=== PATIENT | male | born 1980 | race Caucasian/White ===

== ENCOUNTER 2018-07-01 08:04 | Emergency (ER) | payer SELFPAY ==
[2018-07-01] MEDS ORDERED: FERR325T24 PO (08:16)
[2018-07-01] MEDS ORDERED: FOLI-68 PO (08:16)
[2018-07-01] MEDS ORDERED: INF100I IV (08:16)
[2018-07-01] MEDS ORDERED: MERC50TA14 PO (08:16)
[2018-07-01] MEDS ORDERED: PRED20TA6 PO (08:16)
[2018-07-01] MEDS ORDERED: NS(*) 0.9% 1000 ML BAG 1,000 ML IV ONE (08:31)
[2018-07-01] MEDS ORDERED: HYDROMORPHONE HCL 1 MG/ML SYRINGE IVP ONE ×3 (08:35→11:40)
[2018-07-01] MEDS ORDERED: MESALAMINE 400 MG TABEC PO SCH (08:35)
[2018-07-01] MEDS ORDERED: methylPREDNIS SUCC 125 MG/2ML IVP ONE (08:35)
[2018-07-01] MEDS ORDERED: ONDANSETRON 4 MG/2 ML VIAL IVP ONE (08:35)
[2018-07-01 08:42] LABS: PLATELET COUNT, AUTOMATED 561 K/uL (150-450)
--- NOTE | 2018-07-01 08:42 | ER Report ---
History and Physical Time Seen By MD: 08:20 Hx. of Stated Complaint: PT REPORTS ULCERATIVE COLITIS FLARE UP. REPORTS ABD PAIN AND DARK BLOODY STOOLS. HPI/ROS CHIEF COMPLAINT: Abdominal pain HISTORY OF PRESENT ILLNESS: Patient is a 38-year-old male who presents to the emergency Department with concerns of ulcerative colitis flare. Patient carries this diagnosis and is on chronic daily steroids, 40 mg prednisone daily he also takes mesalamine and receives IV Remicade infusions. Patient was camping and developed crampy abdominal pain and bloody diarrhea overnight. We were the nearest emergency department to him so he presents here this morning for evaluation. [place] [facility] [place]. Patient denies any fevers but reports severe crampy abdominal pain, sweats chills. Denies any chest pain or shortness of breath. Patient has not had any prior surgeries for ulcerative colitis to this date. REVIEW OF SYSTEMS: Constitutional: No fever, chills Eyes: No discharge. ENT: No sore throat. Cardiovascular: No chest pain, no palpitations. Respiratory: No cough, no shortness of breath. Gastrointestinal: Crampy abdominal pain, nausea bloody diarrhea Genitourinary: No hematuria. Musculoskeletal: No back pain. Skin: No rashes. Neurological: No headache. Allergies: Coded Allergies: Penicillins (Verified Allergy, Intermediate, RASH, 07/01/18) morphine (Verified Adverse Reaction, Severe, 07/01/18) VIOLENT BEHAVIOR Home Meds Active Scripts Oxycodone Hcl (OXYCODONE HCL) 5 Mg Tablet, 5 MG PO Q4H for PAIN, #20 TAB 0 Refills Prov:LANG JEFFERS MD 07/01/18 Metronidazole (FLAGYL) 500 Mg Tablet, 500 MG PO BID, #20 TAB 0 Refills Prov:LANG JEFFERS MD 07/01/18 Ciprofloxacin Hcl (CIPRO) 500 Mg Tablet, 500 MG PO BID, #20 TAB 0 Refills Prov:LANG JEFFERS MD 07/01/18 Reported Medications Ferrous Sulfate (IRON) 325 Mg Tablet, 325 MG PO DAILY 07/01/18 Folic Acid (FOLIC ACID) 1 Mg Tablet, PO QDAY, TAB 07/01/18 Mercaptopurine (MERCAPTOPURINE) 50 Mg Tablet, 100 MG PO DAILY 07/01/18 Infliximab (REMICADE) 100 Mg Soln, IV [id number] 07/01/18 Prednisone (PREDNISONE) 20 Mg Tablet, 40 MG PO QDAY, TAB 07/01/18 Discontinued Scripts Oxycodone Hcl/Acetaminophen (PERCOCET 5-325 MG TABLET) 1 Each Tablet, 1 EACH PO Q4H for PAIN, #20 TAB 0 Refills Prov:LANG JEFFERS MD 07/01/18 Past Medical/Surgical History History of ulcerative colitis Constitutional Vital Sign - Last 24 Hours 07/01/18 07/01/18 07/01/18 07/01/18 08:10 08:15 08:30 08:45 Temp 98.2 Pulse 110 114 115 115 Resp 16 B/P (MAP) 139/94 129/88 (102) Pulse Ox 98 96 99 96 O2 Delivery Room Air 07/01/18 07/01/18 07/01/18 07/01/18 09:00 09:30 09:45 10:00 Pulse 112 110 107 101 B/P (MAP) 130/87 (101) 126/86 (99) 124/80 (95) Pulse Ox 97 100 99 98 07/01/18 07/01/18 07/01/18 07/01/18 10:15 10:30 10:45 11:03 Pulse 101 102 112 B/P (MAP) 120/81 (94) 119/75 (90) Pulse Ox 98 98 98 07/01/18 07/01/18 07/01/18 07/01/18 11:15 11:30 11:45 11:46 Pulse 115 108 106 B/P (MAP) 112/70 (84) 122/77 (92) Pulse Ox 98 96 96 07/01/18 12:10 Pulse 116 Pulse Ox 90 O2 Delivery Room Air Intake and Output 07/01/18 07/01/18 07/02/18 15:00 23:00 07:00 Intake Total 1250 ml Balance 1250 ml Physical Exam General/Constitutional: Patient is awake, alert, nontoxic and in no acute respiratory distress. Head: Normocephalic and atraumatic. Eyes: Conjunctival clear, Pupils are equal and reactive to light. Extraocular muscles are intact and symmetrical. Sclera are clear and anicteric. Ears:External canals are clear. Tympanic membranes are clear with normal landmarks and light reflex. Nares: No rhinorrhea or bleeding. Turbinates are pink and moist. Oropharyngeal: Mucous membranes are moist. There is no pharyngeal erythema or exudate. There are no palatal petechiae. Uvula is midline and symmetrical. Neck: Supple, no adenopathy. Cardiovascular: Heart is regular rate and rhythm without audible murmurs, rubs or gallops. Pulmonary: Lungs are clear to auscultation bilaterally. There are no wheezes, rales, or rhonchi. Chest rise is symmetrical Abdomen: Diffuse abdominal pain, increased bowel sounds no peritoneal signs Extremities: No gross deformities, No peripheral cyanosis. Able to move all 4 extremities. Neuro: Alert and oriented X3, Skin: No rashes, skin is warm dry and well perfused. Medical Decision Making Data Points Result Diagram: 07/01/18 0820 07/01/18 0820 Laboratory Hematology Test 07/01/18 08:20 07/01/18 08:44 07/01/18 11:04 Red Blood Count 3.60 M/uL (4.00-5.60) Mean Corpuscular Volume 87.7 fL (80.0-96.0) Mean Corpuscular Hemoglobin 28.0 pg (26.0-33.0) Mean Corpuscular Hemoglobin Concent 31.9 g/dL (32.0-36.0) Red Cell Distribution Width 17.4 % (11.5-14.5) Mean Platelet Volume 6.6 fL (7.2-11.1) Neutrophils (%) (Auto) 65.0 % (39.4-72.5) Lymphocytes (%) (Auto) 23.1 % (17.6-49.6) Monocytes (%) (Auto) 10.0 % (4.1-12.4) Eosinophils (%) (Auto) 1.4 % (0.4-6.7) Basophils (%) (Auto) 0.5 % (0.3-1.4) Nucleated RBC Relative Count (auto) 0.0 /100WBC Neutrophils # (Auto) 4.6 K/uL (2.0-7.4) Lymphocytes # (Auto) 1.6 K/uL (1.3-3.6) Monocytes # (Auto) 0.7 K/uL (0.3-1.0) Eosinophils # (Auto) 0.1 K/uL (0.0-0.5) Basophils # (Auto) 0.0 K/uL (0.0-0.1) Nucleated RBC Absolute Count (auto) 0.00 K/uL Erythrocyte Sedimentation Rate 69 mm/HOUR (0-15) Sodium Level 139 mmol/L (137-145) Potassium Level 3.8 mmol/L (3.5-5.0) Chloride Level 99 mmol/L (98-107) Carbon Dioxide Level 28 mmol/L (22-30) Blood Urea Nitrogen 7 mg/dl (9-21) Creatinine 0.80 mg/dl (0.66-1.25) Glomerular Filtration Rate Calc > 60.0 Random Glucose 120 mg/dl (75-110) Calcium Level 8.9 mg/dl (8.4-10.2) Total Bilirubin 0.3 mg/dl (0.2-1.3) Aspartate Amino Transf (AST/SGOT) 28 U/L (0-35) Alanine Aminotransferase (ALT/SGPT) 34 U/L (0-56) Alkaline Phosphatase 101 U/L (0-126) Total Protein 6.8 g/dl (6.3-8.2) Albumin 3.5 g/dl (3.5-5.0) Lipase 33 U/L (23-300) Stool Occult Blood (IFOB) Positive (NEGATIVE) Stool Leukocytes, Qualitative Positive Clostridium Difficile Toxin A & B Negative Clostridium difficile Antigen Positive Urine Color Yellow Urine Clarity Clear Urine pH 6.0 pH (4.8-9.5) Urine Specific [place] S3 Urine Protein Negative mg/dL (NEGATIVE) Urine Glucose (UA) Negative mg/dL (NEGATIVE) Urine Ketones Negative mg/dL (NEGATIVE) Urine Blood Negative (NEGATIVE) Urine Nitrite Negative (NEGATIVE) Urine Bilirubin Negative (NEGATIVE) Urine Urobilinogen Negative mg/dL (0.2-1.9) Urine Leukocyte Esterase Negative (NEGATIVE) Urine RBC None /HPF (0-2/HPF) Urine WBC None /HPF (0-5/HPF) Urine Squamous Epithelial Cells None /LPF (</=FEW) Urine Bacteria Negative /HPF (NONE-FEW) Urine Mucus Few /HPF (NONE-FEW) Chemistry Test 07/01/18 08:20 07/01/18 08:44 07/01/18 11:04 White Blood Count 7.1 k/uL (4.5-11.0) Red Blood Count 3.60 M/uL (4.00-5.60) Hemoglobin 10.1 g/dL (14.0-18.0) Hematocrit 31.6 % (42.0-52.0) Mean Corpuscular Volume 87.7 fL (80.0-96.0) Mean Corpuscular Hemoglobin 28.0 pg (26.0-33.0) Mean Corpuscular Hemoglobin Concent 31.9 g/dL (32.0-36.0) Red Cell Distribution Width 17.4 % (11.5-14.5) Platelet Count 561 K/uL (150-450) Mean Platelet Volume 6.6 fL (7.2-11.1) Neutrophils (%) (Auto) 65.0 % (39.4-72.5) Lymphocytes (%) (Auto) 23.1 % (17.6-49.6) Monocytes (%) (Auto) 10.0 % (4.1-12.4) Eosinophils (%) (Auto) 1.4 % (0.4-6.7) Basophils (%) (Auto) 0.5 % (0.3-1.4) Nucleated RBC Relative Count (auto) 0.0 /100WBC Neutrophils # (Auto) 4.6 K/uL (2.0-7.4) Lymphocytes # (Auto) 1.6 K/uL (1.3-3.6) Monocytes # (Auto) 0.7 K/uL (0.3-1.0) Eosinophils # (Auto) 0.1 K/uL (0.0-0.5) Basophils # (Auto) 0.0 K/uL (0.0-0.1) Nucleated RBC Absolute Count (auto) 0.00 K/uL Erythrocyte Sedimentation Rate 69 mm/HOUR (0-15) Glomerular Filtration Rate Calc > 60.0 Calcium Level 8.9 mg/dl (8.4-10.2) Total Bilirubin 0.3 mg/dl (0.2-1.3) Aspartate Amino Transf (AST/SGOT) 28 U/L (0-35) Alanine Aminotransferase (ALT/SGPT) 34 U/L (0-56) Alkaline Phosphatase 101 U/L (0-126) Total Protein 6.8 g/dl (6.3-8.2) Albumin 3.5 g/dl (3.5-5.0) Lipase 33 U/L (23-300) Stool Occult Blood (IFOB) Positive (NEGATIVE) Stool Leukocytes, Qualitative Positive Clostridium Difficile Toxin A & B Negative Clostridium difficile Antigen Positive Urine Color Yellow Urine Clarity Clear Urine pH 6.0 pH (4.8-9.5) Urine Specific [place] S3 Urine Protein Negative mg/dL (NEGATIVE) Urine Glucose (UA) Negative mg/dL (NEGATIVE) Urine Ketones Negative mg/dL (NEGATIVE) Urine Blood Negative (NEGATIVE) Urine Nitrite Negative (NEGATIVE) Urine Bilirubin Negative (NEGATIVE) Urine Urobilinogen Negative mg/dL (0.2-1.9) Urine Leukocyte Esterase Negative (NEGATIVE) Urine RBC None /HPF (0-2/HPF) Urine WBC None /HPF (0-5/HPF) Urine Squamous Epithelial Cells None /LPF (</=FEW) Urine Bacteria Negative /HPF (NONE-FEW) Urine Mucus Few /HPF (NONE-FEW) Urinalysis Test 07/01/18 11:04 Urine Color Yellow Urine Clarity Clear Urine pH 6.0 pH (4.8-9.5) Urine Specific [place] S3 Urine Protein Negative mg/dL (NEGATIVE) Urine Glucose (UA) Negative mg/dL (NEGATIVE) Urine Ketones Negative mg/dL (NEGATIVE) Urine Blood Negative (NEGATIVE) Urine Nitrite Negative (NEGATIVE) Urine Bilirubin Negative (NEGATIVE) Urine Urobilinogen Negative mg/dL (0.2-1.9) Urine Leukocyte Esterase Negative (NEGATIVE) Urine RBC None /HPF (0-2/HPF) Urine WBC None /HPF (0-5/HPF) Urine Squamous Epithelial Cells None /LPF (</=FEW) Urine Bacteria Negative /HPF (NONE-FEW) Urine Mucus Few /HPF (NONE-FEW) Microbiology Microbiology Date/Time Source Procedure Growth Status 07/01/18 08:44 Stool Gram Stain - Final Resulted 07/01/18 08:44 Stool Stool Culture Pending Resulted EKG/Imaging EKG Interpretation 07/01/2018 12:21:08 pm EKG shows sinus bradycardia with a ventricular rate of 56 bpm is otherwise normal Monitor Interpretation: Normal Sinus Rhythm Imaging FACILITY: [facility] PATIENT NAME: Neville Buckner : 1980 MR: [id number] V: [id number] EXAM DATE: ORDERING PHYSICIAN: LANG JEFFERS TECHNOLOGIST: Location: [facility] Patient: Neville Buckner : 1980 Visit/Account:[id number] Date of Sevice: 07/01/2018 ABDOMEN/PELVIS WITH CONTRAST HISTORY:ulcerative colitis TECHNIQUE: CT abdomen and pelvis with intravenous contrast. Contiguous axial images of the abdomen and pelvis was performed from the lung bases to the symphysis pubis. One of the following dose optimization techniques was utilized in the performance of this exam: Automated exposure control; adjustment of the mA and/or kV according to the patient's size; or use of an iterative reconstruction technique. Specific details can be referenced in the facility's radiology CT exam operational policy. CONTRAST: 85 cc of Isovue-370 COMPARISON: None. FINDINGS: Visualized lung bases: Negative. Hepatobiliary: There is fatty infiltration of liver. Liver measures 19.6 cm in craniocaudal length which is slightly enlarged. Gallbladder and bile ducts are unremarkable. Spleen: Negative. Adrenals: Negative. Kidneys/: Negative. Pancreas: Negative. GI: There is circumferential thickening and mild inflammation of the entire colon in keeping with diagnosis of ulcerative colitis. There is sparing of the small bowel and terminal ileum. Appendix is mildly dilated measures 7 mm without inflammatory changes likely related to patient's underlying ulcerative colitis. No bowel perforation, abscess or obstruction. Vessels/spaces/nodes: Slightly prominent retroperitoneal and mesenteric lymph nodes are likely reactive. Bones/soft tissues: Degenerative changes are noted in the spine. Circumscribed lucent and centrally sclerotic lesion left iliac bone is likely benign in this age group. Benign sclerotic bone island left sepsis pubis is noted. IMPRESSION: 1. Significant thickening and mild inflammation of the entire colon in keeping with diagnosis of ulcerative colitis. No evidence for bowel perforation, abscess formation or obstruction. The small bowel and terminal ileum are spared. Report Dictated By: Aldair Campos MD at 07/01/2018 9:31 AM Report E-Signed By: Aldair Campos MD at 07/01/2018 9:38 AM WSN:[id number] ED Course/Re-evaluation Clinical Indication for ER IV: Hydration, IV Access ED Course Plan at this time will be to give bolus of IV steroids along with oral mesalanine; we will perform CBC give IV fluid bolus and check a CT scan of the abdomen and pelvis. 07/01/2018 10:13:[address] scan reveals diffuse inflammatory bowel changes without evidence of perforation or abscess. C. difficile toxins and B- antigen positive which is an indeterminate result. Plan at this time will be to place the patient on both Cipro and Flagyl as an outpatient. We will have him continue his current ulcerative colitis regime. We will have him follow-up with his GI specialist in [place] on Tuesday. Decision to Disposition Date: Jul 01, 2018 Decision to Disposition Time: 11:49 Depart Departure Latest Vital Signs Vital Signs Date Time Temp Pulse Resp B/P (MAP) Pulse Ox O2 Delivery O2 Flow Rate FiO2 07/01/18 12:10 116 90 Room Air 07/01/18 11:46 122/77 (92) 07/01/18 08:10 98.2 16 Impression: Primary Impression: Ulcerative colitis Condition: Improved Disposition: HOME OR SELF-CARE New Scripts Oxycodone Hcl (OXYCODONE HCL) 5 Mg Tablet 5 MG PO Q4H for PAIN, #20 TAB 0 Refills Prov: LANG JEFFERS MD 07/01/18 Metronidazole (FLAGYL) 500 Mg Tablet 500 MG PO BID, #20 TAB 0 Refills Prov: LANG JEFFERS MD 07/01/18 Ciprofloxacin Hcl (CIPRO) 500 Mg Tablet 500 MG PO BID, #20 TAB 0 Refills Prov: LANG JEFFERS MD 07/01/18 Patient Instructions: Ulcerative Colitis (DC) Additional Instructions: Continue all your medications as prescribed Start your antibiotics and take as directed until complete Call your GI doctor Tuesday to arrange follow-up, if your symptoms worsen at any time you should go to the nearest emergency department for reevaluation Problem Qualifiers Primary Impression: Ulcerative colitis Ulcerative colitis location: ulcerative pancolitis Digestive disease complication type: with rectal bleeding Qualified Codes: K51.011 - Ulcerative (chronic) pancolitis with rectal bleeding LANG JEFFERS MD Jul 01, 2018 08:42
[2018-07-01] MEDS ORDERED: IOPAMIDOL 76% 100 ML INFUS BTL 100 ML ONE (08:57)
--- NOTE | 2018-07-01 09:42 | RADIOLOGY IMAGING REPORT ---
FACILITY: [facility] PATIENT NAME: Neville Buckner : 1980 MR: [id number] V: [id number] EXAM DATE: ORDERING PHYSICIAN: LANG JEFFERS TECHNOLOGIST: Location: [facility] Patient: Neville Buckner : 1980 Visit/Account:[id number] Date of Sevice: 07/01/2018 ABDOMEN/PELVIS WITH CONTRAST HISTORY:ulcerative colitis TECHNIQUE: CT abdomen and pelvis with intravenous contrast. Contiguous axial images of the abdomen and pelvis was performed from the lung bases to the symphysis pubis. One of the following dose optimization techniques was utilized in the performance of this exam: Autom ated exposure control; adjustment of the mA and/or kV according to the patient's size; or use of an i terative reconstruction technique. Specific details can be referenced in the facility's radiology C T exam operational policy. CONTRAST: 85 cc of Isovue-370 COMPARISON: None. FINDINGS: Visualized lung bases: Negative. Hepatobiliary: There is fatty infiltration of liver. Liver measures 19.6 cm in craniocaudal length w hich is slightly enlarged. Gallbladder and bile ducts are unremarkable. Spleen: Negative. Adrenals: Negative. Kidneys/: Negative. Pancreas: Negative. GI: There is circumferential thickening and mild inflammation of the entire colon in keeping with di agnosis of ulcerative colitis. There is sparing of the small bowel and terminal ileum. Appendix is mi ldly dilated measures 7 mm without inflammatory changes likely related to patient's underlying ulcera tive colitis. No bowel perforation, abscess or obstruction. Vessels/spaces/nodes: Slightly prominent retroperitoneal and mesenteric lymph nodes are likely react susanne. Bones/soft tissues: Degenerative changes are noted in the spine. Circumscribed lucent and centrally sclerotic lesion left iliac bone is likely benign in this age group. Benign sclerotic bone island lef t sepsis pubis is noted. IMPRESSION: 1. Significant thickening and mild inflammation of the entire colon in keeping with diagnosis of ulc erative colitis. No evidence for bowel perforation, abscess formation or obstruction. The small bowel and terminal ileum are spared. Report Dictated By: Aldair Campos MD at 07/01/2018 9:31 AM Report E-Signed By: Aldair Campos MD at 07/01/2018 9:38 AM [id number]
[2018-07-01] MEDS ORDERED: metroNIDAZOLE* 500MG/100ML BAG 100 ML IVPB ONE (09:45)
[2018-07-01] MEDS ORDERED: LEVOFLOXACIN/D5W 750 MG/150 ML 150 ML IVPB ONE (09:45)
[2018-07-01] MEDS ORDERED: CIPR-344 PO (10:22)
[2018-07-01] MEDS ORDERED: OXYC-865 PO (10:22)
[2018-07-01] MEDS ORDERED: METR-1 PO (10:22)
[2018-07-01 11:46] VITALS: BP 122/77
[2018-07-01] MEDS ORDERED: OXYC5TAB38 PO (12:14)
== END 2018-07-01 12:14 | disposition home or self-care (01) ==
LOC: ER 08:13
DX: K51.011 Ulcerative (chronic) pancolitis with rectal bleeding (principal)
CPT/HCPCS: 74177; 81001; 82274; 83630; 83690; 85025; 85651; 87045; 87205; 87324; 87449; 96365; 96366; 96368; 96375; 96376; 99284; J1170; J1956; J2405; J2930; J3490; J7030; Q9967; 82040; 82247; 82310; 82374; 82435; 82565; 82947; 84075; 84132; 84155; 84295; 84450; 84460; 84520